=== PATIENT | male | born 1975 | race Caucasian/White ===

== ENCOUNTER 2022-08-03 08:15 | Outpatient (CLI) | payer BC, SELFPAY ==
[2022-08-03 14:24] LABS: Free T4 Free Thyroxine* 2.17 ng/dL (0.70-1.85)
[2022-08-03 14:42] LABS: Thyroid Stimulating Hormone* < 0.015 uIU/mL (0.270-4.20)
== END 2022-08-03 08:16 | disposition home or self-care (01) ==
PROVIDERS: PCP Family Medicine; Visit Provider Family Medicine
DX: Z01.818 Encounter for other preprocedural examination (principal); C73 Malignant neoplasm of thyroid gland; F43.22 Adjustment disorder with anxiety
CPT/HCPCS: 84439; 84443

== ENCOUNTER 2022-08-31 09:55 | Outpatient (CLI) | payer BC, SELFPAY ==
[2022-08-31 23:34] LABS: Thyroid Stimulating Hormone* 0.122 uIU/mL (0.270-4.20)
== END 2022-08-31 09:56 | disposition home or self-care (01) ==
LOC: LKVREF 09:56
PROVIDERS: PCP Family Medicine; Visit Provider Family Medicine
DX: E01.0 Iodine-deficiency related diffuse (endemic) goiter (principal)
CPT/HCPCS: 84443

== ENCOUNTER 2022-09-01 10:18 | Day surgery (SDC) | payer BC, SELFPAY ==
[2022-09-01] VITALS (11 sets, daily range): BP systolic 107–138; BP diastolic 58–77; PULSE 58–73; RESP 13–16; TEMP 36.9–37; O2SAT 90–96; BMI 27.5
[2022-09-01] MEDS: LACTATED RINGERS 1000 ML 1,000 ML 100 ML IV (10:30)
[2022-09-01] MEDS: OXYMETAZOLINE 0.05% NASAL SPRAY 2 SPRAY NOSTRIL-B (10:50)
[2022-09-01] MEDS: SODIUM CHLORIDE 0.9 % (FLUSH) 10 ML SYRINGE IVF (10:52)
--- NOTE | 2022-09-01 10:53 | SUR.PREOP ---
Patient presented a negative COVID test from home, taken 08/31/22.
[2022-09-01] MEDS: COCAINE HCL 4 % 4 ML SOLUTION NOSTRIL-B (11:32)
[2022-09-01] MEDS: BUPIVACAINE 0.5 %/EPI 1:200K 30 ML INJECTION (11:34)
[2022-09-01] MEDS: MUPIROCIN 1 GM PACKET 1 APPLIC TOPICAL (11:34)
[2022-09-01] MEDS: AYR SALINE NASAL GEL 1 APPLIC NOSTRIL-B (11:37)
--- NOTE | 2022-09-01 11:48 | W.PM.ENTPROC ---
Procedure Note Date of procedure: 09/01/22 Procedure: Preop diagnosis nasal obstruction deviated septum inferior turbinate hypertrophy Postoperative diagnosis same Procedure septoplasty and submucous partial resection right inferior turbinate Under general endotracheal anesthesia patient was prepped and draped in usual fashion and nose injected and decongested. A right hemitransfixion incision was made. Bilateral anterior and posterior tunnels were created. A vertical incision was made the cartilage from the bone. The posterior bony deflection was resected by cutting above and below the angle scissors removing the piece with a Bridger forceps. A single large piece of bone and cartilage was trimmed and returned to the posterior intraseptal space. A left torus Baudilio drainage incision was made inferiorly. Stab incision was made in the anterior of the right inferior turbinate a tunnel created with a Thomas dissector. The right inferior turbinate was then outfractured. A conservative anterior submucous resection was performed with Bridger forceps. The Coblation was used to cauterize intramurally along the inferior 10%. The mid transfixion was closed with 2 4-0 chromic sutures. Silastic stents were secured with 3-0 nylon. A piece of Merocel packing was trimmed lengthwise coated in Bactroban and placed intranasally on either side hold the septum midline. The patient tolerated procedure well was taken recovery in satisfactory condition. Blood loss during procedure was less than 25 mL. No complications Surgeon: Christopher Garrett MD
--- NOTE | 2022-09-01 11:56 | W.ANESCHARGE ---
Anesthesia Charges Start Date/Time Anesthesia Start Date: 09/01/22 Anesthesia Start Time: 11:23 Stop Date/Time Anesthesia Stop Date: 09/01/22 Anesthesia Stop Time: 11:59 Summary Emergency: No
--- NOTE | 2022-09-01 11:57 | W.ANESCHARGE ---
Anesthesia Charges Start Date/Time Anesthesia Start Date: 09/01/22 Anesthesia Start Time: 11:23 Stop Date/Time Anesthesia Stop Date: 09/01/22 Anesthesia Stop Time: 11:59 Summary Emergency: No
--- NOTE | 2022-09-01 12:31 | SUR.PHASEI ---
patient met discharge criteria per anesthesia
== END 2022-09-01 13:19 | disposition home or self-care (01) ==
PROVIDERS: PCP Family Medicine; Visit Provider Otolaryngology
PROC: (CPT 30520; principal; 2022-09-01 11:30)
DX: J34.2 Deviated nasal septum (principal); J34.3 Hypertrophy of nasal turbinates; J34.89 Other specified disorders of nose and nasal sinuses
CPT/HCPCS: 30520; 30140; 00160; A9270; J0330; J1100; J2250; J2405; J2704; J3010; J3490; J7120

== ENCOUNTER 2022-10-26 15:08 | Outpatient (CLI) | payer BC, SELFPAY ==
[2022-10-26 22:37] LABS: Thyroid Stimulating Hormone* 0.666 uIU/mL (0.270-4.20)
== END 2022-10-26 15:09 | disposition home or self-care (01) ==
PROVIDERS: PCP Family Medicine; Visit Provider Family Medicine
DX: E01.0 Iodine-deficiency related diffuse (endemic) goiter (principal)
CPT/HCPCS: 84443

== ENCOUNTER 2023-04-30 13:44 | Outpatient (CLI) | payer BC, SELFPAY | END 2023-04-30 13:45 | disposition home or self-care (01) | PROVIDERS: PCP Family Medicine; Visit Provider Family Medicine | DX: E03.9 Hypothyroidism, unspecified (principal); E01.0 Iodine-deficiency related diffuse (endemic) goiter | CPT/HCPCS: 84439; 84443 ==

== ENCOUNTER 2023-05-25 08:28 | Outpatient (CLI) | payer BC, SELFPAY ==
--- NOTE | 2023-05-25 09:29 | W.ANESCHARGE ---
Anesthesia Charges Start Date/Time Anesthesia Start Date: 05/25/23 Anesthesia Start Time: 09:00 Stop Date/Time Anesthesia Stop Date: 05/25/23 Anesthesia Stop Time: 09:25
== END 2023-05-25 08:29 | disposition home or self-care (01) ==
LOC: OP CLINIC 08:31
PROVIDERS: PCP Family Medicine; Visit Provider Internal Medicine
DX: K21.9 Gastro-esophageal reflux disease without esophagitis (principal)
CPT/HCPCS: 00731; 43239; 88305; J2704; J3490

== ENCOUNTER 2023-09-10 08:43 | Outpatient (CLI) | payer BC, SELFPAY | END 2023-09-10 08:44 | disposition home or self-care (01) | LOC: NFLDREF 09-11 10:39 | PROVIDERS: PCP Family Medicine; Referring Provider Family Medicine; Visit Provider Family Medicine | DX: E03.9 Hypothyroidism, unspecified (principal) | CPT/HCPCS: 84443 ==

== ENCOUNTER 2024-11-07 14:46 | Outpatient (CLI) | payer BC, SELFPAY | END 2024-11-07 14:47 | disposition home or self-care (01) | PROVIDERS: PCP Family Medicine; Visit Provider Family Medicine | DX: E78.00 Pure hypercholesterolemia, unspecified (principal); E03.9 Hypothyroidism, unspecified; M25.561 Pain in right knee; K21.9 Gastro-esophageal reflux disease without esophagitis; Z12.5 Encounter for screening for malignant neoplasm of prostate | CPT/HCPCS: 80053; 80061; 84443; G0103 ==

== ENCOUNTER 2024-11-21 07:57 | Outpatient (CLI) | payer BC, SELFPAY | END 2024-11-21 07:58 | disposition home or self-care (01) | LOC: MRI 07:58 | PROVIDERS: PCP Family Medicine; Visit Provider Family Medicine | DX: M25.561 Pain in right knee (principal); S83.241A Other tear of medial meniscus, current injury, right knee, initial encounter; M25.461 Effusion, right knee; M22.41 Chondromalacia patellae, right knee; M71.21 Synovial cyst of popliteal space [Baker], right knee | CPT/HCPCS: 73721 ==

== ENCOUNTER 2025-02-24 08:49 | Outpatient (CLI) | payer BC, SELFPAY | END 2025-02-24 08:50 | disposition home or self-care (01) | LOC: NFLDREF 02-26 17:02 | PROVIDERS: PCP Family Medicine; Referring Provider Family Medicine; Visit Provider Family Medicine | DX: E78.00 Pure hypercholesterolemia, unspecified (principal); R79.89 Other specified abnormal findings of blood chemistry | CPT/HCPCS: 80061; 80076 ==